=== PATIENT | female | born 1955 | race Caucasian/White ===

== ENCOUNTER 2019-05-31 22:21 | Emergency (ER) | payer BC ==
[~2019-05-31] VITALS: Ht 160 cm; Wt 72.0 kg
[2019-05-31] MEDS ORDERED: normal saline 1000ML IV soln IVB ONE (22:50)
--- NOTE | 2019-05-31 23:00 | NUR ---
PT CAME TO ER WITH C/O N/V AND HEADACHE. PT BEGAN TO COMPLAIN OF SHARP, SUBSTERNAL CHEST PAIN. PER PROTOCOL, EKG, CHEST X-RAY, ASA 324 MG, ORDERED.
[2019-05-31] MEDS ORDERED: acetaminophen 325mg tablet PO ONE (23:25)
[2019-05-31 23:30] LABS: BASOPHILS # (AUTO) 0.1 X10'3 (0-0.2); BASOPHILS % (AUTO) 0.4 % (0-1); EOSINOPHILS # (AUTO) 0.1 X10'3 (0-0.9); HEMATOCRIT 40.8 % (35.0-45.0); HEMOGLOBIN 13.3 g/dl (12.0-16.0); LYMPHOCYTES # (AUTO) 1.7 X10'3 (1.1-4.8); LYMPHOCYTES % (AUTO) 13.8 % (21-51); MEAN CORPUSCULAR HEMOGLOBIN 27.1 PG (27.0-31.0); MEAN CORPUSCULAR HGB CONC 32.6 g/dL (33.0-36.5); MEAN CORPUSCULAR VOLUME 83.2 FL (78-98); MEAN PLATELET VOLUME 8.5 FL (7.4-10.4); MONOCYTES # (AUTO) 0.9 X10'3 (0-0.9); MONOCYTES % (AUTO) 7.2 % (2-12); NEUTROPHILS # (AUTO) 9.7 X10'3 (1.8-7.7); NEUTROPHILS % (AUTO) 77.6 % (42-75); PLATELET COUNT 201 X10'3 (140-440); RED CELL DISTRIBUTION WIDTH 13.7 % (11.5-14.5); WHITE BLOOD COUNT 12.4 X10'3 (4.5-11.0)
[2019-05-31] MEDS ORDERED: aspirin 81mg tab.chew PO ONE (23:35)
[2019-05-31] MEDS ORDERED: ondansetron/PF 4mg/2ml inj IV ONE ×2 (23:35)
[2019-05-31 23:37] LABS: ALANINE AMINOTRANSFERASE 33 U/L (12-78); ALBUMIN 3.7 G/DL (3.4-5.0); ALBUMIN/GLOBULIN RATIO 0.8 (1.1-1.5); ALKALINE PHOSPHATASE 57 IU/L (46-116); ANION GAP 10 (8-16); ASPARTATE AMINO TRANSFERASE 22 U/L (10-37); BILIRUBIN,TOTAL 0.4 MG/DL (0.1-1.0); BLOOD UREA NITROGEN 15 MG/DL (7-18); BUN/CREATININE RATIO 16.9 (6.6-38.0); CALCIUM 8.9 MG/DL (8.5-10.1); CHLORIDE 105 MMOL/L (99-107); CREATININE 0.89 MG/DL (0.40-0.90); GLUCOSE 114 MG/DL (70-104); LIPASE 132 U/L (73-393); POTASSIUM 3.6 MMOL/L (3.5-5.1); SODIUM 142 MMOL/L (135-145); TOTAL CARBON DIOXIDE 27.4 MMOL/L (24-32); TOTAL PROTEIN 8.1 G/DL (6.4-8.2); eGFR 64 ML/MIN
[2019-06-01] MEDS ORDERED: ONDA4TAB6 PO (01:12)
[2019-06-01 01:47] VITALS: BP 104/63
== END 2019-06-01 01:52 | disposition home or self-care (01) ==
LOC: ER 22:21
DX: K29.00 Acute gastritis without bleeding (principal); R07.9 Chest pain, unspecified; Z79.899 Other long term (current) drug therapy
CPT/HCPCS: 36415; 71045; 80053; 83690; 84484; 85025; 96361; 96374; 99284; J2405; J7030

== ENCOUNTER 2021-04-29 21:55 | Emergency (ER) | payer MEDICARE, BC ==
[~2021-04-29] VITALS: Ht 162.6 cm; Wt 72.7 kg
[~2021-04-29 21:55] MED LIST: ONDA4TAB6 PO
[2021-04-29 22:24] VITALS: BP 105/60
[2021-04-29] MEDS ORDERED: dexamethasone 4mg tablet PO ONE (23:05)
[2021-04-29] MEDS ORDERED: DEXA6TAB6 PO ×2 (23:11→23:15)
== END 2021-04-29 23:50 | disposition home or self-care (01) ==
LOC: ER 21:57
DX: U07.1 COVID-19 (principal); J12.82 Pneumonia due to coronavirus disease 2019; R10.84 Generalized abdominal pain; R19.7 Diarrhea, unspecified; R43.8 Other disturbances of smell and taste; R05 Cough; R53.83 Other fatigue; R42 Dizziness and giddiness; Z79.899 Other long term (current) drug therapy
CPT/HCPCS: 71046; 87635; 99284; C9803

== ENCOUNTER 2021-05-01 11:12 | Emergency (ER) | payer BC ==
[~2021-05-01] VITALS: Ht 162.6 cm; Wt 72.7 kg
[~2021-05-01 11:12] MED LIST changes: +DEXA6TAB6 PO
[2021-05-01 12:04] VITALS: BP 90/50
[2021-05-01] MEDS ORDERED: OXYGEN NASALCANN (14:33)
[2021-05-01] MEDS ORDERED: BENZ-16 PO (14:46)
== END 2021-05-01 15:18 | disposition home or self-care (01) ==
LOC: ER 11:13
DX: U07.1 COVID-19 (principal); J12.82 Pneumonia due to coronavirus disease 2019; Z79.899 Other long term (current) drug therapy
CPT/HCPCS: 99283